=== PATIENT | female | born 1980 | race Caucasian/White ===

== ENCOUNTER → 2019-09-14 | Outpatient (CLI) | payer OTHER ==
--- NOTE | 2019-09-15 11:02 | US ---
EXAMINATION TYPE: US pelvis complete transvag DATE OF EXAM: 09/14/2019 COMPARISON: US 12/14/2015 CLINICAL HISTORY: N93.9 Abnormal uterine and vaginal bleeding, R10.2. TECHNIQUE: . Transabdominal sonographic images of the pelvis were acquired. Transvaginal sonographi c images were medically necessary to better assess the following anatomy: Uterus and ovaries Date of LMP: 08/21/2019 EXAM MEASUREMENTS: Uterus: 7.9 x 6.4 x 5.0 cm Endometrial Stripe: 0.9 cm Right Ovary: 2.0 x 1.7 x 1.6 cm Left Ovary: 2.7 x 1.3 x 1.6 cm 1. Uterus: Anteverted Heterogeneous. Nabothian cysts visualized. Hypoechoic area visualized measur ing 2.7 x 1.6 x 2.0 cm, possible fibroid 2. Endometrium: wnl 3. Right Ovary: wnl 4. Left Ovary: wnl 5. Bilateral Adnexa: wnl 6. Posterior cul-de-sac: wnl IMPRESSION: 1. Suspected uterine fibroid.
== END | disposition home or self-care (01) ==
LOC: RADUSWWP 16:07
PROVIDERS: ATTEND Family Medicine
DX: N93.9 Abnormal uterine and vaginal bleeding, unspecified (principal); R10.2 Pelvic and perineal pain
CPT/HCPCS: 76830; 76856

== ENCOUNTER 2020-03-02 14:29 | Emergency (ER) | payer OTHER ==
[2020-03-02 14:37] VITALS: RESP 18
--- NOTE | 2020-03-02 15:09 | ED ---
Extremity Problem HPI - General Chief complaint: Extremity Problem,Nontraumatic Stated complaint: Numb R Arm-sent by pcp Time Seen by Provider: 03/02/20 14:44 Source: patient Mode of arrival: ambulatory Limitations: no limitations - History of Present Illness Initial comments: 39-year-old male presenting to the emergency department with a chief complaint of a right arm tingling. Patient reports this occurred yesterday where she developed a tingling sensation from the medial aspect of the right elbow down to her fourth and fifth digit. Patient reports she still has sensation there. States the symptoms are not as prominent right now. She also reports yesterday she noticed some silva discoloration of her second through fifth digit. States that it lasted for approximately 10-20 minutes and it resolved on its own. Patient reports she continued to have sensation there. Patient states this occurred while she was eating food not exposed to any cold temperatures. She denies any headaches, one-sided weakness or paresthesias. She denies any blurred vision chest pain or shortness of breath. Denies unilateral leg swelling, history of PE DVT, oral contraceptive use or recent hospitalizations in the last month. Patient states she was sent here from her primary care physician to rule out a DVT. - Related Data Allergies Allergy/AdvReac Type Severity Reaction Status Date / Time No Known Allergies Allergy Verified 03/02/20 14:36 Review of Systems ROS Statement: Those systems with pertinent positive or pertinent negative responses have been documented in the HPI. ROS Other: All systems not noted in ROS Statement are negative. Past Medical History Past Medical History: No Reported History History of Any Multi-Drug Resistant Organisms: None Reported Past Surgical History: No Surgical Hx Reported, Tubal Ligation Additional Past Surgical History / Comment(s): D&C oct 2019 Smoking Status: Never smoker Past Alcohol Use History: None Reported Past Drug Use History: None Reported General Exam Limitations: no limitations General appearance: alert, in no apparent distress Head exam: Present: atraumatic, normocephalic, normal inspection Eye exam: Present: normal appearance, PERRL, EOMI Pupils: Present: normal accommodation ENT exam: Present: normal exam, normal oropharynx, mucous membranes moist, TM's normal bilaterally, normal external ear exam Neck exam: Present: normal inspection, full ROM. Absent: tenderness Respiratory exam: Present: normal lung sounds bilaterally. Absent: respiratory distress, wheezes, rales Cardiovascular Exam: Present: regular rate, normal rhythm, normal heart sounds Extremities exam: Present: normal inspection (No discoloration noted on bilateral upper extremities.), full ROM, normal capillary refill, other (+2 ulnar and radial pulses bilaterally.). Absent: tenderness, pedal edema, joint swelling, calf tenderness Back exam: Present: normal inspection, full ROM. Absent: tenderness, CVA tenderness (R), CVA tenderness (L) Neurological exam: Present: alert, oriented X3 Psychiatric exam: Present: normal affect, normal mood Skin exam: Present: warm, dry, intact, normal color Course Vital Signs 03/02/20 03/02/20 14:33 16:47 Temperature 97.7 F 98.7 F Pulse Rate 74 78 Respiratory 18 18 Rate Blood Pressure 147/81 127/84 O2 Sat by Pulse 100 98 Oximetry Medical Decision Making - Medical Decision Making 39-year-old female presenting to emergency department with a chief complaint of tingling in her right arm. On physical examination, patient is neurovascularly intact. Ultrasound of the right upper extremity reveals no signs of DVT. I suspect the patient is having cubital tunnel like symptoms along with Raynauds. I showed the patient several pictures of the condition and she agreed her symptoms are very similar to that. Patient was given additional information about the condition. She was advised to follow-up with a primary care physician or laser specialist. Return parameters were thoroughly discussed patient was understanding and agreeable. Case discussed with physician. Disposition Clinical Impression: Arm paresthesia, right Disposition: HOME SELF-CARE Condition: Stable Instructions (If sedation given, give patient instructions): Paresthesia (ED), Arm Pain (ED) Additional Instructions: Follow-up with her primary care physician. Return to emergency department if symptoms worsen. Is patient prescribed a controlled substance at d/c from ED?: No Referrals: Shruthi Mar MD [Primary Care Provider] - 1-2 days Bennie Knight PAC [PHYSICIAN TYPEWRITER OPERATOR [employer]] - 1-2 days Time of Disposition: 16:20
--- NOTE | 2020-03-02 15:59 | US ---
EXAMINATION TYPE: US venous doppler duplex UE RT DATE OF EXAM: 03/02/2020 3:51 PM COMPARISON: NONE CLINICAL HISTORY: r/o dvt. Pain SIDE PERFORMED: Right TECHNIQUE: The upper extremity deep venous system is examined utilizing real time linear array sonog gabriela with graded compression, doppler sonography and color-flow sonography. VESSELS IMAGED: Internal Jugular Vein IJV Junct Subclavian Axillary Vein Brachial Veins Basilic Vein Cephalic Vein Radial Veins limited Ulnar Veins limited Right ARM Negative for DVT IMPRESSION: 1. No diagnostic evidence of DVT as visualized.
[2020-03-02 16:47] VITALS: BP 127/84; PULSE 78; TEMP 98.7
== END 2020-03-02 16:47 | disposition home or self-care (01) ==
LOC: EC 14:29
DX: R20.2 Paresthesia of skin (principal); M79.601 Pain in right arm
CPT/HCPCS: 99284